=== PATIENT | male | born 1960 | race Caucasian/White ===

== ENCOUNTER → 2018-01-10 | Outpatient (CLI) | payer BC ==
[~2018-01-10] MED LIST: ALBUAER2; ALBUAER2 INH; ALLDSR/24 PO; ATOR-24 PO; EPP3/2 IM; SYMIN160 INH
--- NOTE | 2018-01-10 12:35 | DIAGNOSTIC IMAGING REPORT ---
[facility] CLINICAL HISTORY: 57 years-old Male presenting with K59.00 abdominal distention for one week, constipation, mild fever, fainted 2 days ago. TECHNIQUE: Single supine view of the abdomen was obtained. COMPARISON: None. FINDINGS: Nonobstructive bowel gas pattern. No gross pneumoperitoneum. Allowing for bowel gas and stool, no calcifications to suggest nephrolithiasis. Left hemipelvis phlebolith noted. Osseous structures normal. Lung bases clear. IMPRESSION: 1. No acute intra-abdominal pathology. Electronically signed by: Christian Zaragoza M.D. 01/10/2018 12:34 PM Dictated Date/Time: 01/10/2018 12:33 PM
[2018-01-10 13:16] LABS: BASO % 0.4 %; BASO ABS # 0.01 K/uL (0-0.2); EOS % 4.4 %; EOS ABS # 0.12 K/uL (0-0.5); HEMATOCRIT 45.4 % (42-52); HEMOGLOBIN 15.5 g/dL (14.0-18.0); IG# 0.01 K/uL (0.00-0.02); LYMPH % 21.1 %; LYMPH ABS # 0.58 K/uL (1.2-3.4); MEAN CELL VOLUME 88.5 fL (80-100); MEAN CORPUSCULAR HEMOGLOBIN 30.2 pg (25-34); MEAN CORPUSCULAR HGB CONC 34.1 g/dl (32-36); MEAN PLATELET VOLUME 11.4 fL (7.4-10.4); MONO % 10.2 %; MONO ABS # 0.28 K/uL (0.11-0.59); NEUT % 63.5 %; NEUT ABS # 1.75 K/uL (1.4-6.5); PLATELET COUNT 173 K/uL (130-400); RED CELL DISTRIBUTION WIDTH CV 13.1 % (11.5-14.5); RED CELL DISTRIBUTION WIDTH SD 42.4 fL (36.4-46.3); WHITE BLOOD COUNT 2.75 K/uL (4.8-10.8)
[2018-01-10 17:18] LABS: ALBUMIN 3.5 gm/dl (3.4-5.0); ALT/SGPT 48 U/L (12-78); BLOOD UREA NITROGEN 17 mg/dl (7-18); CALCIUM 8.3 mg/dl (8.5-10.1); CARBON DIOXIDE 25 mmol/L (21-32); CHOLESTEROL 163 mg/dl (0-200); CREATININE 1.03 mg/dl (0.60-1.40); GLUCOSE 100 mg/dl (70-99); POTASSIUM 3.4 mmol/L (3.5-5.1); SODIUM 134 mmol/L (136-145)
[2018-01-10 17:28] LABS: ALKALINE PHOSPHATASE 66 U/L (45-117); AST/SGOT 25 U/L (15-37); LDL CHOLESTEROL CALCULATED 78 mg/dl
== END | disposition home or self-care (01) ==
LOC: C.RAD1850 11:50
PROVIDERS: ATTEND Physician Assistant
DX: K59.00 Constipation, unspecified (principal); R42 Dizziness and giddiness; R11.0 Nausea; E78.00 Pure hypercholesterolemia, unspecified

== ENCOUNTER → 2018-05-15 | Outpatient (CLI) | payer BC ==
[2018-05-15 13:30] LABS: HEMOGLOBIN A1C 5.7 % (4.5-5.6)
[2018-05-15 13:44] LABS: ALT/SGPT 32 U/L (12-78); AST/SGOT 19 U/L (15-37); BLOOD UREA NITROGEN 23 mg/dl (7-18); CALCIUM 8.8 mg/dl (8.5-10.1); CARBON DIOXIDE 25 mmol/L (21-32); CHOLESTEROL 325 mg/dl (0-200); GLUCOSE 97 mg/dl (70-99); LDL CHOLESTEROL CALCULATED 238 mg/dl; POTASSIUM 3.7 mmol/L (3.5-5.1); SODIUM 135 mmol/L (136-145)
== END | disposition home or self-care (01) ==
LOC: C.LAB1850 12:17
PROVIDERS: ATTEND Internal Medicine
DX: E55.9 Vitamin D deficiency, unspecified (principal); E78.00 Pure hypercholesterolemia, unspecified; R73.9 Hyperglycemia, unspecified